=== PATIENT | female | born 1995 | race Caucasian/White ===

== ENCOUNTER 2017-01-24 10:04 | Emergency (ER) | payer BC ==
[2017-01-24 10:16] VITALS: BP 121/63
--- NOTE | 2017-01-24 10:36 | UC ---
Throat Pain/Nasal Jacob HPI - HPI Summary HPI Summary: 3 days of worsening sore throat, no fever, no n/v/ no nasal congestion - History of Current Complaint Chief Complaint: UCRespiratory Stated Complaint: SORE THROAT Time Seen by Provider: 01/24/17 10:33 Hx Obtained From: Patient Hx Last Menstrual Period: 01/09/17 ?: No Onset/Duration: Sudden Onset, Lasting Days - 3, Still Present Severity: Moderate Pain Intensity: 6 Pain Scale Used: 0-10 Numeric Cough: None Associated Signs & Symptoms: Positive: Negative Related History: Seasonal Allergies, T & A - Allergies/Home Medications Allergies/Adverse Reactions: Allergies Allergy/AdvReac Type Severity Reaction Status Date / Time No Known Allergies Allergy Unverified 03/12/16 07:06 Home Medications: Home Medications Beclomethasone Dipropionate (N [Qnasl Childrens] 1 NASAL DAILY 01/24/17 [History ] Levocetirizine Dihydrochloride [Levocetirizine Dihydrochl] 1 PO DAILY 01/24/17 [ History] PMH/Surg Hx/FS Hx/Imm Hx Previously Healthy: No Endocrine History Of: Denies: Diabetes, Thyroid Disease Cardiovascular History Of: Denies: Cardiac Disorders, Hypertension Respiratory History Of: Denies: COPD, Asthma GI/ History Of: Denies: Ulcer - Surgical History Surgical History: Yes Surgery Procedure, Year, and Place: 04/18/2012 LEFT ANKLE FUSION RECENTLY REMOVED , [facility] [place]. LEFT KNEE ARTHROSCOPY, [place]. 1998 TONSILLECTOMY, AND ADENOIDECTOMY , [facility] - Family History Known Family History: Positive: None Family History: no reported cardiovascular issues in family lineage - Social History Occupation: Student - at [employer] Lives: With Family Alcohol Use: Occasionally Alcohol Amount: BEER 1 X MONTH Substance Use Type: None Smoking Status (MU): Never Smoked Tobacco - Immunization History Most Recent Influenza Vaccination: 2012 Review of Systems Constitutional: Negative Skin: Negative Eyes: Negative ENT: Sore Throat Respiratory: Negative Cardiovascular: Negative Gastrointestinal: Negative Genitourinary: Negative Motor: Negative Neurovascular: Negative Musculoskeletal: Negative Neurological: Negative Psychological: Negative All Other Systems Reviewed And Are Negative: Yes Physical Exam Triage Information Reviewed: Yes Appearance: Well-Appearing, No Pain Distress, Well-Nourished Vital Signs: Initial Vital Signs Temp 99.2 F 04/06/17 10:09 Pulse 98 01/24/17 10:09 Resp 20 01/24/17 10:09 BP 121/63 01/24/17 10:09 Pulse Ox 98 01/24/17 10:09 Vital Signs Reviewed: Yes Eye Exam: Normal Eyes: Positive: Conjunctiva Clear ENT Exam: Normal ENT: Positive: Normal ENT inspection, Hearing grossly normal, Pharynx normal, TMs normal. Negative: Nasal congestion, Nasal drainage, Tonsillar swelling, Tonsillar exudate, Trismus, Muffled/hoarse voice Dental Exam: Normal Neck exam: Normal Neck: Positive: Supple, Nontender, Enlarged Nodes @ - anterior cervical Respiratory Exam: Normal Respiratory: Positive: Chest non-tender, Lungs clear, Normal breath sounds, No respiratory distress, No accessory muscle use Cardiovascular Exam: Normal Cardiovascular: Positive: RRR, No Murmur, Pulses Normal, Brisk Capillary Refill Musculoskeletal Exam: Normal Musculoskeletal: Positive: Strength Intact, ROM Intact, No Edema Neurological Exam: Normal Neurological: Positive: Alert, Muscle Tone Normal Psychological Exam: Normal Psychological: Positive: Normal Response To Family, Age Appropriate Behavior Skin Exam: Normal Diagnostics - Laboratory Diagnostic Studies Completed/Ordered: Strep (-) Throat Pain/Nasal Course/Dx - Course Assessment/Plan: increase fluids, otc medications for sx relief, follow with pcp - Differential Dx/Diagnosis Differential Diagnosis/HQI/PQRI: Influenza, Laryngitis, Pharyngitis, Sinusitis, URI Provider Diagnoses: URI, Viral illness Discharge - Discharge Plan Condition: Stable Disposition: HOME Patient Education Materials: Pharyngitis (ED), Viral Syndrome (ED) Referrals: Jil Gonzalez NP [Primary Care Provider] - 1 Week
== END 2017-01-24 11:27 | disposition home or self-care (01) ==
LOC: UCEAST 10:04
DX: J06.9 Acute upper respiratory infection, unspecified (principal); B34.9 Viral infection, unspecified
CPT/HCPCS: 87651; 99211; G0463

== ENCOUNTER 2017-10-28 06:20 | Day surgery (SDC) | payer BC ==
--- NOTE | 2017-10-15 20:10 | HP ---
HISTORY AND PHYSICAL: DATE OF SURGERY: 10/28/17. DATE OF HISTORY AND PHYSICAL: 10/11/17. SURGEON: Dr. Doron Horowitz.* (DICTATED BY SARA PARKER) PROCEDURE: Right foot hardware removal. CHIEF COMPLAINT: Right foot pain. HISTORY OF PRESENT ILLNESS: Kelly is a healthy 22-year-old female who had bilateral subtalar coalitions. She had subtalar arthrodesis on the right side on 03/12/16, and now has painful hardware at her heel. Radiographs has shown a solid arthrodesis, but prominent hardware. We have discussed elected screw removal of her right foot and she would like to proceed. She presents for an H& P today. PAST MEDICAL HISTORY: The patient has no known medical problems. PAST SURGICAL HISTORY: 1. Bilateral subtalar arthrodesis. 2. Left ankle hardware removal. 3. Left knee arthroscopy. 4. Ear tube placement. 5. Tonsillectomy. MEDICATIONS: 1. Singulair 2. QNasal. 3. Levocetirizine. 4. Aviane control. ALLERGIES: No known drug allergies. FAMILY MEDICAL HISTORY: No known medical problems. SOCIAL HISTORY: She does not smoke or use tobacco in any way. She occasionally drinks alcohol. She denies any illicit drug use including marijuana. REVIEW OF SYSTEMS: Positive for her current complaint. She denies any history of problems with anesthesia and no history of DVT or PE. She is able to walk a flight of stairs or a city block without chest pain or SOB. Otherwise a 14- point review of systems is negative. She does also denies any history of infections with MRSA, hep C or HIV. PHYSICAL EXAMINATION GENERAL: Kelly is a well-nourished, well-developed 22-year-old female in no acute distress, alert and oriented x3. No gross neurological deficits, ambulating without a limp. VITAL SIGNS: Height 64 inches, weight 187 pounds, pulse 76, blood pressure 124/ 82, respirations 14, temperature 97.2. Pain level 0. BMI 32.1. HEENT: Normocephalic, atraumatic. Pupils equally round and reactive to light and accommodation. Extraocular movements are intact. NECK: Supple. There are no palpable cervical lymph nodes. Thyroid is smooth and nontender. PULMONARY: Lungs are clear to auscultation bilaterally without any wheezes, rhonchi or rales. CARDIAC: Regular rate and rhythm with no murmurs, rubs or gallops. No pedal edema. She has 2+ bilateral pedal pulses. ABDOMEN: Soft, and nontender. MUSCULOSKELETAL: Right lower extremity skin is intact with well-healed incision on the lateral side of her foot. Neutral hindfoot alignment. Full range of motion. Tenderness at the heel pad posteriorly. Brisk capillary refill and sensation intact distally. NEUROLOGICAL: Sensation intact to light touch at her right inner web space dorsal plantar lateral and medial foot. IMPRESSION: Painful hardware of her right foot. PLAN: Kelly is scheduled to undergo a right foot hardware removal with Dr. Horowitz on 10/28/17. She will return to clinic in 10 to 14 days for postoperative followup and suture removal. A prescription for pain management will be prescribed the day of surgery and I-STOP will be checked at that time. SARA PARKER [id number]/[facility] #: [id number] TOMMY
[~2017-10-28 06:20] MED LIST: Buffered Lidocaine 0.9% SYRIN* 5 ML/SYR SYRINGE INTRADERM ONE; Famotidine IV* 10 MG/ML 2 ML (20 mg) IV ONE
[2017-10-28] MEDS ORDERED: Famotidine IV* 10 MG/ML 2 ML (20 mg) ONE (06:28)
[2017-10-28] MEDS ORDERED: ceFAZolin 2 GM PREMIX (*) 2 GM/50 ML BAG IVPB ONE (06:28)
[2017-10-28] MEDS ORDERED: Buffered Lidocaine 0.9% SYRIN* 5 ML/SYR SYRINGE ONE (06:28)
[2017-10-28] MEDS ORDERED: Lidocaine 2% PF* 10 ML AMP ONE (07:05)
[2017-10-28] MEDS ORDERED: Bupivacaine 0.5% SDV PF* 10-30ML VIAL ONE (07:05)
[2017-10-28] MEDS ORDERED: Midazolam* 1 MG/ML 2 ML VIAL (2 MG) ONE (07:26)
[2017-10-28] MEDS ORDERED: fentaNYL* 50 MCG/ML 2 ML VIAL (100 MCG VIAL) ONE (07:27)
[2017-10-28] MEDS ORDERED: DiMENhydriNATE IV* 50 MG/ML VIAL ONE (07:48)
[2017-10-28] MEDS ORDERED: Ketorolac INJ* 30 MG/ML 1 ML VIAL ONE (07:48)
[2017-10-28] MEDS ORDERED: Dexamethasone IV* 4 MG/ML 1 ML (4 MG) ONE (07:48)
[2017-10-28] MEDS ORDERED: Lidocaine 2% PF * 5 ML VIAL ONE (07:48)
[2017-10-28] MEDS ORDERED: Propofol* 10 MG/ML 20 ML BTL IV PUSH ONE (07:48)
[2017-10-28] MEDS ORDERED: Ondansetron INJ* 2 MG/ML VIAL ONE (07:48)
[2017-10-28] MEDS ORDERED: Acetaminophen TAB* 325 MG PO PRN (08:20)
[2017-10-28] MEDS ORDERED: DiMENhydriNATE IV* 50 MG/ML VIAL IV PUSH PRN (08:20)
[2017-10-28] MEDS ORDERED: oxyCODONE TAB* 5 MG TAB PO PRN (08:20)
[2017-10-28] MEDS ORDERED: oxyCODONE TAB* 5 MG TAB ONE (08:28)
[2017-10-28] MEDS ORDERED: Acetaminophen TAB* 325 MG ONE (08:34)
[2017-10-28 09:53] VITALS: BP 117/66
--- NOTE | 2017-10-29 14:06 | OP ---
DATE OF OPERATION: 10/28/17 - [facility] DATE OF : [birth year] SURGEON: Doron Horowitz MD PRE-OP DIAGNOSIS: Painful hardware, right heel. POST-OP DIAGNOSIS: Painful hardware, right heel. OPERATIVE PROCEDURE: Removal of heel screw, right foot. DESCRIPTION OF PROCEDURE: The patient was taken to the operating room where IV sedation was administered as well as a local infusion of anesthetic around the right heel. A 1 cm incision was made and then we cannulated the 7-3 screw with the guide pin and then removed it with the appropriate screw stock car driver. The washer was removed with the rongeur. We irrigated thoroughly closing with Prolene sutures and a compression dressing applied. [id number]/[facility] #: [id number] [facility]
== END 2017-10-28 09:54 | disposition home or self-care (01) ==
LOC: OR 06:20
PROVIDERS: ATTEND Orthopaedic Surgery
DX: T84.84XA Pain due to internal orthopedic prosthetic devices, implants and grafts, initial encounter (principal); Y83.1 Surgical operation with implant of artificial internal device as the cause of abnormal reaction of the patient, or of later complication, without mention of misadventure at the time of the procedure; M79.671 Pain in right foot
CPT/HCPCS: 81025; 88300; A9270-GY; J0690; J1100; J1240; J1885; J2001; J2250; J2405; J2704; J3010